=== PATIENT | female | born 1985 | race Caucasian/White ===

== ENCOUNTER 2017-07-27 15:00 | Emergency (ER) | payer MEDICARE, OTHER ==
[~2017-07-27] VITALS: Ht 147.3 cm; Wt 75.0 kg
[~2017-07-27 15:00] MED LIST: ACET250T3 PO; ALPH0.1S EACH EYE; BETH10TA2 PO; CABE0.5T PO; DONE10TA7 PO; FLUT1SPR5 EACH NARE; PROT40TA PO; SYNT88TA PO; UBID30CA2; VENTAER INH
[2017-07-27 15:01] VITALS: BP 131/73; PULSE 72; RESP 18; TEMP 98.2; O2SAT 98
[2017-07-27] MEDS ORDERED: PRED20 PO (15:31)
[2017-07-27] MEDS ORDERED: BENZ100 PO (15:31)
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
== END 2017-07-27 15:57 | disposition home or self-care (01) ==
LOC: NEPA 15:00
DX: J45.901 Unspecified asthma with (acute) exacerbation (principal); Z88.1 Allergy status to other antibiotic agents
CPT/HCPCS: 99284

== ENCOUNTER → 2017-09-01 | Outpatient (CLI) | payer MEDICARE, OTHER ==
[~2017-09-01] MED LIST changes: +BENZ100 PO; +PRED20 PO
--- NOTE | 2017-09-07 14:17 | RSPPFT ---
DATE OF PROCEDURE: 09/01/17 COMMENTS: Spirometetry with FVC of 1.8, FEV1 of 1.2, FEV1/FVC ratio at 70%. A positive and significant response to acutely inhaled bronchodilator noted. IMPRESSION: 1. Moderately severe airways obstruction. 2. Positive and significant response to acutely inhaled bronchodilator.
== END ==
LOC: HRSP 13:31
PROVIDERS: ATTEND Family Medicine
DX: J45.909 Unspecified asthma, uncomplicated (principal)
CPT/HCPCS: 94060